=== PATIENT | female | born 1985 | race Caucasian/White ===

== ENCOUNTER → 2019-06-26 08:45 | Outpatient (CLI) | payer OTHER, SELFPAY ==
--- NOTE | 2019-06-26 | DI.MRI.S_ITS ---
PROCEDURE: MR BRAIN (PITUITARY) WWO CON INDICATIONS: Abnormal level of hormones TECHNIQUE: Noncontrast sagittal and axial FLAIR, axial gradient echo, axial diffusion and ADC through the brain. Thin-slice sagittal and coronal T1 spin echo, coronal T2 fast spin echo through the pituitary. After the administration contrast, optional dynamic coronal T1 spin echo, thin-slice coronal and sagittal T1 spin echo images through the pituitary fossa; axial T1 spin echo with fat saturation through the brain. COMPARISON: None. FINDINGS: Image quality: Excellent. Pituitary Gland: Within the central portion of the pituitary gland, there is a lesion seen without significant enhancement that demonstrates fluid/fluid levels on precontrast imaging, including precontrast T1-weighted hyperintensity, as on series 10 image 6. This measures 1.3 cm AP by 1.3 cm transversely, with a craniocaudal extent of 1.2 cm. This lesion does not enhance, although there is a stone seen on the margins of this lesion, which likely represent normal pituitary tissue. Minimal mass effect can be seen upon the optic chiasm. The pituitary stalk and infundibulum have an unremarkable appearance. A normal appearing pituitary bright spot is seen posteriorly on the precontrast sagittal T1-weighted images. CSF Spaces: Ventricles are normal in size and shape. Basal cisterns are patent. No extra-axial fluid collections. Brain: No intracranial bleeds or mass effects. No abnormal intracranial enhancement. Farley-white matter interface is intact. Diffusion weighted images demonstrate no acute ischemic insults. Brainstem is normal. Normal intravascular flow voids are present. Skull and face: Calvarial marrow is normal in signal. Orbits appear normal. Sinuses: Sinuses and mastoids are clear. IMPRESSION: There is a 1.3 cystic lesion with hemorrhage within it. No enhancing masses are seen. Please consider a followup position of vertical MRI in 3-6 months for further evaluation. Minimal mass effect is seen upon the optic chiasm. Dictated by: Hal Ambriz M.D. on 06/26/2019 at 8:49 Approved by: Hal Ambriz M.D. on 06/26/2019 at 8:54
== END ==
PROVIDERS: PCP Family Medicine; Visit Provider Family Medicine
DX: R89.1 Abnormal level of hormones in specimens from other organs, systems and tissues (principal); E23.6 Other disorders of pituitary gland; Q61.00 Congenital renal cyst, unspecified; K86.2 Cyst of pancreas
CPT/HCPCS: 70553

== ENCOUNTER 2020-01-20 19:15 | Emergency (ER) | payer OTHER, SELFPAY ==
[2020-01-20 19:28] VITALS: BP 224/119; PULSE 83; RESP 17; TEMP 37; O2SAT 100
[2020-01-20 19:40] VITALS: BP 150/88
--- NOTE | 2020-01-20 19:46 | PC.NURSE ---
Pt has a hx of migraines and states that this migraine is similar to the others besides the fuzzy vision in her L eye. She also reports a brightness in her L eye. Had a scheduled appt with her neurololgist but d/t vision changes he wished her to come to the ER. She states that the worse of her migraine was on Monday but has since been getting better, today it is a 3/10 pain
[2020-01-20 20:07] LABS: Add Manual Diff / Slide Review NO; Basophils Absolute Auto 0 /uL (0-100); Basophils Percent Auto 0.9 % (0-2); Eosinophils Absolute Auto 100 /uL (0-450); Eosinophils Percent Auto 1.5 % (2-4); Hematocrit 35.9 % (36-46); Hemoglobin 11.9 g/dL (12.0-16.0); Lymphocytes Absolute Auto 2500 /uL (1100-4500); Lymphocytes Percent Auto 47.9 % (25-40); Mean Corpuscular HGB Conc 33.2 % (30-36); Mean Corpuscular Hemoglobin 27.5 PG (26-34); Mean Corpuscular Volume 82.9 fL (80-100); Monocytes Absolute Auto 400 /uL (0-900); Neutrophils Absolute Auto 2200 /uL (1500-7000); Neutrophils Percent Auto 41.7 % (50-75); Platelet Count 463 X10^3/uL (150-400); Red Blood Cell Count 4.34 X10^6/uL (4.0-5.2); Red Cell Distribution Width 14.1 % (11.6-14.8); White Blood Cell Count 5.2 X10^3/uL (4.5-11.0)
[2020-01-20 20:12] LABS: BUN Creatinine Ratio 15.9 (6-22); Blood Urea Nitrogen 11 mg/dL (7-17); Calcium 9.2 mg/dL (8.4-10.2); Carbon Dioxide 27 mmol/L (22-32); Chloride 102 mmol/L (98-107); Estimated Glomerular Filt Rate > 60.0 mL/min (>60); Glucose 99 mg/dL (70-100); HEMOLYSIS 15 (0-50); Potassium 3.8 mmol/L (3.4-5.1); Sodium 136 mmol/L (137-145)
--- NOTE | 2020-01-20 20:26 | ED.HA ---
HPI - Headache <ABDIRASHID Diaz - Last Filed: 01/21/20 02:33> General Chief Complaint: Headache Stated Complaint: LOOSE VISION LEFT EYE MIGRAINE Time Seen by Provider: 01/20/20 19:30 Source: patient Mode of arrival: Ambulatory Limitations: no limitations History of Present Illness HPI Narrative: This is a 34 year female, nonsmoker, who has of polycystic kidney disease, pituitary tumor, migraine headache presents to ED with her significant other with chief complain of decreased left vision since . Patient reports onset of migraine started on Monday. Patient usually has photosensitivity with her migraine headache. Patient noticed blurred vision on which became worse on Monday. She states she is able to see light, collar and shapes but not in details. Patient reports vision is better actually in dark room instead of bright room which distorts the shakes. Patient has no problem with right eye vision. Patient has throbbing pain behind bilateral eyes but denies pain itself within the eye. Patient reports her headache has slightly improved since Monday. She reports current headache is at 3 to 4/10 but her vision is not improving. Patient is currently taking propanolol for maintenance/prophylactic medication for migraine headache. She use to have migraine headache about 2 to 3 times a month but now it has been decreased to once a month. She was evaluated at the primary care clinic at [facility] at and was referred to cylinder handler and neurologist. When she was in contact with neurologist and [facility] she was instructed to going to ED for an evaluation. She reports she has mild nausea. She denies fever, chills, vomiting, unusual rashes, or neck tightness. Patient's last MRI was done in May 2019 which indicates pituitary gland lesion 1.3 cm transversely with craniocaudal extent of 1.2 cm. This lesion does not enhance although there is a stone seen on the margins of this lesion which likely represent normal pituitary tissue. There is minimal mass effect can be seen upon the optic chiasm. He was recommended to follow up in 3-6 months with a vertical MRI for further evaluation. Patient reports neurologist Dr. Duarte at [facility] is monitoring with this condition with Q 6 months MRI test. She also is followed up with cylinder handler at [facility] since her pituitary gland lesion is close to optic chiasm. The patient reports first found out about pituitary lesion 9 years ago. No following imaging test was done until May last year. No neurosurgeon follow-up was required according to tobacco wetter since the size is very small and no other symptoms patient had at that time. Related Data Home Medications Medication Instructions Recorded Confirmed acetaminophen #0 05/23/16 etonogestrel-ethinyl estradiol 1 icr VAGINAL #0 05/23/16 [NuvaRing] multivitamin [Multiple Vitamins] 1 tab PO QDAY #0 tab 05/23/16 ibuprofen 01/20/20 losartan 25 mg PO DAILY 01/20/20 01/20/20 propranolol 20 mg PO BID 01/20/20 01/20/20 Allergies Allergy/AdvReac Type Severity Reaction Status Date / Time meperidine [From DEMEROL] AdvReac Mild N&V-PT Verified 01/20/20 19:34 DENIED HAVING DEMEROL NSAIDS (Non-Steroidal AdvReac Unknown AVOIDS Verified 01/20/20 19:34 Anti-Inflamma BECAUSE OF [NSAIDS (NON-STEROIDAL THE ANTI-INFLAMMA] POLYCYSTIC KIDNEY DISEASE ketorolac [From Toradol] AdvReac anxiety Verified 01/20/20 20:48 lisinopril AdvReac cough Verified 01/20/20 20:48 tramadol AdvReac anxiety Verified 01/20/20 20:48 Review of Systems <ABDIRASHID Diaz - Last Filed: 01/21/20 02:33> Review of Systems Narrative: General: Denies fever, chills, fatigue, malaise, sweats. HEENT: See HPI Respiratory: Denies dyspnea, cough, wheezing, hemoptysis, sputum. Cardiovascular: Denies chest pain, palpitations, orthopnea, edema. Gastrointestinal: Denies nausea, vomiting, abdominal pain, diarrhea, constipation, melena. : Denies dysuria, frequency, incontinence, hematuria, urinary retention. Musculoskeletal: Denies weakness, joint pain or bony pain. Skin: Denies rash, skin lesions, or other. Neurologic: Denies weakness, (+) headache, numbness, change in speech, confusion, seizures, incoordination. Psychiatric: No concerning psychosocial issues. 12-point review of systems is negative except for those stated above. Patient History <ABDIRASHID Diaz - Last Filed: 01/21/20 02:33> Medical History (Updated 01/21/20 @ 02:05 by ABDIRASHID Diaz) Migraine headache (Acute) Pituitary gland disorder (Acute) Polycystic kidney (Acute) Surgical History (Updated 01/20/20 @ 20:47 by ABDIRASHID Diaz) H/O tubal ligation (Acute) Social History Smoking Status: Never smoker Smoking Status: Never smoker alcohol intake frequency: holidays/special occasions only Substance Use Type: does not use Exam <ABDIRASHID Diaz - Last Filed: 01/21/20 02:33> Narrative Exam Narrative: GEN: Alert, oriented x 3, well appearing and nourished, and in no acute distress. Head: Normal cephalic, atraumatic. No scalp or temporal tenderness, palpable mass or rash. EYES: Pupils are equal, round, and reactive to light and accommodation. Extraocular muscles are intact bilaterally. There is no subconjunctival hemorrhage, exudate and sclera non-icteric. Visual Acuity OS 20/70, OD 20/30, OU 20/20. IOP 18 ENT: Bilateral auditory canals and tympanic membranes clear. Hearing grossly intact. Nose without bleeding, purulent discharge, septal hematoma or deviation. Mucous membrane moist, no mucosal lesion. Throat without erythema, tonsillar hypertrophy or exudate. Uvula in midline, airway patent. Neck: Trachea in midline. No JVD, non-tender without lymphadenopathy. No masses or thyroid megaly. Supple, non-tender and no meningeal signs. CARDIAC: Normal regular rate and rhythm without murmurs, gallops, or rubs. No chest wall tenderness. No peripheral edema, cyanosis or pallor. Capillary refill is less than 2 seconds. No carotid bruits. RESPIRATORY: Lungs are cleat to auscultate bilaterally. No cough, wheezes, rales, or rhonchi. No stridor, respiratory distress, increase work of breathing, or accessary muscle used. ABD: Abdomen soft, nontender and non-distended. No guarding or rebound tenderness to palpate. Bowel sounds are normal in all 4 quadrants. There is no palpable masses or organomegaly. EXT: Full painless ROM of all extremities with no loss of sensation, strength, effusion or edema. SKIN: Warm, dry, normal color for patient. No erythema, lesions or rash. BACK: Nontender without deformity or crepitance. No flank tenderness. NEUROLOGICAL: Alert and oriented to place, time and person. No facial droops, dysphasia. CN II-XII intact. Strength and sensation symmetric and intact throughout. Cerebellar testing normal. PSYCHIATRIC: Good judgement and reason, without hallucinations, abnormal affect or abnormal behaviors during the examination. Patient is not suicidal. Initial Vital Signs Initial Vital Signs: Vital Signs Temperature 98.6 F 01/20/20 19:28 Pulse Rate 83 01/20/20 19:28 Respiratory Rate 17 01/20/20 19:28 Blood Pressure 224/119 H 01/20/20 19:28 Pulse Oximetry 100 01/20/20 19:28 Eyes General: appearance normal, both eyes and all related structures Visual Mccormick: normal visual mccormick by confrontation Alignment and Position: alignment normal Periorbital: periorbital findings normal Eyelids: eyelids normal Conjunctivae: conjunctivae normal Sclera: sclerae normal Cornea: corneas normal Pupils: PERRL, normal by confrontation and accommodation normal EOM: EOM intact bilaterally Direct ophthalmoscopy: normal light reflex <Chevy Lee DO - Last Filed: 01/21/20 03:03> Initial Vital Signs Initial Vital Signs: Vital Signs Temperature 98.6 F 01/20/20 19:28 Pulse Rate 83 01/20/20 19:28 Respiratory Rate 17 01/20/20 19:28 Blood Pressure 224/119 H 01/20/20 19:28 Pulse Oximetry 100 01/20/20 19:28 Scores <ABDIRASHID Diaz - Last Filed: 01/21/20 02:33> GCS Diana coma scale eye opening: Spontaneous Diana coma scale verbal response: Orientated Diana coma scale motor response: Obey commands Diana coma scale total score: 15 Course <ABDIRASHID Diaz - Last Filed: 01/21/20 02:33> Orders Ordered: ED Orders 01/20/20 19:36 Basic Metabolic Panel Stat Complete Blood Count AUTO DIFF Stat Partial Thromboplastin Time Stat Prothrombin Time INR Stat 01/20/20 22:26 CT head/brain wo con Stat Discontinued Medications Acetaminophen (Tylenol) 650 mg PO NOW ONE Stop: 01/20/20 20:00 Last Admin: 01/20/20 20:31 Dose: 650 mg Documented by: NEHA Diphenhydramine HCl (Benadryl) 25 mg IV NOW ONE Stop: 01/20/20 20:00 Last Admin: 01/20/20 20:31 Dose: 25 mg Documented by: NEHA Sodium Chloride (Normal Saline 0.9%) 500 mls @ 1,000 mls/hr IV BOLUS ONE Stop: 01/20/20 20:28 Last Infusion: 01/20/20 21:05 Dose: 0 mls/hr Documented by: Admin: 01/20/20 20:32 Dose: 1,000 mls/hr Documented by: NEHA Metoclopramide HCl (Reglan) 10 mg IV NOW ONE Stop: 01/20/20 20:00 Last Admin: 01/20/20 20:32 Dose: 10 mg Documented by: NEHA Proparacaine HCl (Parcaine 0.5% Ophth Sheila) 1 drops EYE-LEFT NOW ONE Stop: 01/20/20 20:08 Last Admin: 01/20/20 20:33 Dose: 1 drops Documented by: NEHA Reevaluation(s) Reevaluation #1: No changes in vision in left eye even with improved headache Time: 21:00 Consultations Consultation #1: Dr. Matthew at [facility] (Gen Surg resident) consulted with test results and physical finding. Waiting for neuro specialist to call back for their recommendation. Informed no MRI is available tonight. Time: 21:32 Consultation #2: Dr. Staton (opthalmologist) kindly called back and recommended no further imaging but to transfer her to [place] for probable MRI testing and to keep patient NPO in case patient requires surgical procedure. Time: 10:00 Consultation #3: Dr. Renteria (neuro-surgeon) at [facility] kindly called back with recommendation with Head CT to rule out hydrocephalus or pituitary bleed. If there's a surgical emergency as those two indicated findings then to transfer the patient to [facility] for surgical treatment. If there's no surgcial emergencies, to consult back with Ophthalmology and or neurologist at [facility] for further recommendation, evaluation, and treatment. Time: 10:20 Additional Consultation(s): At [facility] transfer center consulted with CT result. Increased pituitary lesion in size and waiting for neurosurgeons phone call. It is informed that [facility] does not do surgery involved pituitary gland/tumor. Vital Signs Vital signs: Vital Signs - 8 hr 01/20/20 19:28 01/20/20 19:40 01/20/20 20:58 Temperature 98.6 F Pulse Rate 83 75 Respiratory Rate 17 16 Blood Pressure 224/119 H Blood Pressure [Left Arm] 150/88 H 150/88 H Pulse Oximetry 100 99 01/20/20 22:05 01/21/20 00:10 01/21/20 02:06 Temperature 98.4 F Pulse Rate 71 78 85 Respiratory Rate 18 16 18 Blood Pressure Blood Pressure [Left Arm] 143/76 H 158/89 H 191/105 H Pulse Oximetry 99 100 100 01/21/20 02:35 Temperature Pulse Rate 87 Respiratory Rate 20 Blood Pressure Blood Pressure [Left Arm] 162/89 H Pulse Oximetry 100 <Chevy Lee DO - Last Filed: 01/21/20 03:03> Orders Ordered: ED Orders 01/20/20 19:36 Basic Metabolic Panel Stat Complete Blood Count AUTO DIFF Stat Partial Thromboplastin Time Stat Prothrombin Time INR Stat 01/20/20 22:26 CT head/brain wo con Stat Discontinued Medications Acetaminophen (Tylenol) 650 mg PO NOW ONE Stop: 01/20/20 20:00 Last Admin: 01/20/20 20:31 Dose: 650 mg Documented by: NEHA Diphenhydramine HCl (Benadryl) 25 mg IV NOW ONE Stop: 01/20/20 20:00 Last Admin: 01/20/20 20:31 Dose: 25 mg Documented by: NEHA Sodium Chloride (Normal Saline 0.9%) 500 mls @ 1,000 mls/hr IV BOLUS ONE Stop: 01/20/20 20:28 Last Infusion: 01/20/20 21:05 Dose: 0 mls/hr Documented by: Admin: 01/20/20 20:32 Dose: 1,000 mls/hr Documented by: NEHA Metoclopramide HCl (Reglan) 10 mg IV NOW ONE Stop: 01/20/20 20:00 Last Admin: 01/20/20 20:32 Dose: 10 mg Documented by: NEHA Proparacaine HCl (Parcaine 0.5% Ophth Sheila) 1 drops EYE-LEFT NOW ONE Stop: 01/20/20 20:08 Last Admin: 01/20/20 20:33 Dose: 1 drops Documented by: NEHA Vital Signs Vital signs: Vital Signs - 8 hr 01/20/20 19:28 01/20/20 19:40 01/20/20 20:58 Temperature 98.6 F Pulse Rate 83 75 Respiratory Rate 17 16 Blood Pressure 224/119 H Blood Pressure [Left Arm] 150/88 H 150/88 H Pulse Oximetry 100 99 01/20/20 22:05 01/21/20 00:10 01/21/20 02:06 Temperature 98.4 F Pulse Rate 71 78 85 Respiratory Rate 18 16 18 Blood Pressure Blood Pressure [Left Arm] 143/76 H 158/89 H 191/105 H Pulse Oximetry 99 100 100 01/21/20 02:35 Temperature Pulse Rate 87 Respiratory Rate 20 Blood Pressure Blood Pressure [Left Arm] 162/89 H Pulse Oximetry 100 MDM - Headache <Jay López-ABDIRASHID Hussein - Last Filed: 01/21/20 02:33> Differential Diagnosis Differential diagnosis: Likely migraine and other (enlarged pituitary gland tumor, retinal artery occulusion) Medical Records Attestation: I reviewed the patient's medical records. Lab Data Attestation: I reviewed the patient's lab results. Result diagrams: 01/20/20 19:36 01/20/20 19:36 Labs: Lab Results 01/20/20 01/20/20 01/20/20 Range/Units 19:36 19:36 19:36 WBC 5.2 (4.5-11.0) X10^3/uL RBC 4.34 (4.0-5.2) X10^6/uL Hgb 11.9 L (12.0-16.0) g/dL Hct 35.9 L (36-46) % MCV 82.9 (80-100) fL MCH 27.5 (26-34) PG MCHC 33.2 (30-36) % RDW 14.1 (11.6-14.8) % Plt Count 463 H (150-400) X10^3/uL Neut % (Auto) 41.7 L (50-75) % Lymph % (Auto) 47.9 H (25-40) % Maury % (Auto) 8.0 (3-14) % Eos % (Auto) 1.5 L (2-4) % Baso % (Auto) 0.9 (0-2) % Neut # (Auto) 2200 (4676-3569) /uL Lymph # (Auto) 2500 (8572-9540) /uL Maury # (Auto) 400 (0-900) /uL Eos # (Auto) 100 (0-450) /uL Baso # (Auto) 0 (0-100) /uL PT 11.6 (10.1-12.7) SECONDS INR 1.0 (0.9-1.3) APTT 42 H (26.4-36.2) SECONDS Sodium 136 L (137-145) mmol/L Potassium 3.8 (3.4-5.1) mmol/L Chloride 102 (98-107) mmol/L Carbon Dioxide 27 (22-32) mmol/L BUN 11 (7-17) mg/dL Creatinine 0.69 (0.52-1.04) mg/dL Estimated GFR > 60.0 (>60) mL/min BUN/Creatinine Ratio 15.9 (6-22) Glucose 99 (70-100) mg/dL Calcium 9.2 (8.4-10.2) mg/dL [facility] Narrative Medical decision making narrative: No obvious neurological deficit per physical exam. Eye exam was unremarkable except patient has decreased vision on left eye as 20/70 verses 20/30 on right eye. OU was 20/20. IOP was 18. Normal eyelids, alignement, EOM, PERR. Normal conjunctiva, sclear findings. Patient's headache was managed with IV fluid, IV Benadryl and Reglan, Tyelenol which patient found to be helpful. When patient was re-evaluated reports no changes in vision. Consulted [place] cylinder handler Dr. Leone and neurosurgeon Dr. Renteria at [facility] and Dr. Lee. As Dr. Renteria's recommendation, head CT was obtained and waiting for the result. Head CT preliminary report faxed to ED: Interval in size of pituitary lesion now measuring up to 1.5 x 1.2 x 1.1 cm (from 1.2x 1.3x 1.3 cm) . This was better seen on prior MRI imaging. This lesion situated abuts the optic chiasm read by Dr. Lopez Ogden and received a phone call as well. There is no Hydrocephalus or intracranial hemorrhage appreciated. Waiting for [place] neurosurgeon's phone call with the above CT results and possible surgical consult. Informed the patient and spouse with CT findings and current status of waiting for consult phone calls. 0150-Consulted neurosurgeon at , Dr. Almonte, over the phone with physical findings test results. Dr. Almonte kindly accepted the patient's care for further evaluation and possible surgical procedure. Patient has been remaining NPO since 1930 last night except a few sips of water to take medicatioin. Patient reports her headache is mostly gone at this time with remaining decreased vision in left eye. Patient denies nausea at this time. Patient ambulated to the bathroom and back to bed in stable gait. Informed patient and significant other on pending transfer to and they both verbalized understanding and agreement with the treatment plan. <Chevy Lee DO - Last Filed: 01/21/20 03:03> Lab Data Labs: Lab Results 01/20/20 01/20/20 01/20/20 Range/Units 19:36 19:36 19:36 WBC 5.2 (4.5-11.0) X10^3/uL RBC 4.34 (4.0-5.2) X10^6/uL Hgb 11.9 L (12.0-16.0) g/dL Hct 35.9 L (36-46) % MCV 82.9 (80-100) fL MCH 27.5 (26-34) PG MCHC 33.2 (30-36) % RDW 14.1 (11.6-14.8) % Plt Count 463 H (150-400) X10^3/uL Neut % (Auto) 41.7 L (50-75) % Lymph % (Auto) 47.9 H (25-40) % Maury % (Auto) 8.0 (3-14) % Eos % (Auto) 1.5 L (2-4) % Baso % (Auto) 0.9 (0-2) % Neut # (Auto) 2200 (3852-0747) /uL Lymph # (Auto) 2500 (6482-0895) /uL Maury # (Auto) 400 (0-900) /uL Eos # (Auto) 100 (0-450) /uL Baso # (Auto) 0 (0-100) /uL PT 11.6 (10.1-12.7) SECONDS INR 1.0 (0.9-1.3) APTT 42 H (26.4-36.2) SECONDS Sodium 136 L (137-145) mmol/L Potassium 3.8 (3.4-5.1) mmol/L Chloride 102 (98-107) mmol/L Carbon Dioxide 27 (22-32) mmol/L BUN 11 (7-17) mg/dL Creatinine 0.69 (0.52-1.04) mg/dL Estimated GFR > 60.0 (>60) mL/min BUN/Creatinine Ratio 15.9 (6-22) Glucose 99 (70-100) mg/dL Calcium 9.2 (8.4-10.2) mg/dL Discharge Plan Departure Patient Disposition: [facility] Clinical Impression: Lesion of pituitary gland, Blurred vision, left eye Headache Qualifiers: Headache type: unspecified Headache chronicity pattern: unspecified pattern Intractability: not intractable Qualified Code(s): R51 - Headache Discharge Date/Time: 01/21/20 02:37 Prescriptions: No Action etonogestrel-ethinyl estradiol [NuvaRing] 1 EACH ring 1 icr Vaginal Qty: 0 RF: 0 multivitamin [Multiple Vitamins] 1 EACH tablet 1 tab PO QDAY Qty: 0 RF: 0 acetaminophen 325 mg tablet Qty: 0 RF: 0 losartan 25 mg tablet 25 mg PO DAILY RF: 0 ibuprofen 600 mg tablet RF: 0 propranolol 20 mg tablet 20 mg PO BID RF: 0 Referrals: Cristine Castanon DO [Primary Care Provider] - <Chevy Lee DO - Last Filed: 01/21/20 03:03> Cosign ED Attending Cosignature Attestation: Dr Lee Co-Sign Statement: I was available for consultation during this patient's emergency department visit. This chart is signed by myself for administrative purposes only. I did not have direct contact with this patient during this visit. They were seen independently by the APC.
[2020-01-20] MEDS: diphenhydrAMINE 50 MG/ML VIAL 25 MG IV (20:31)
[2020-01-20] MEDS: ACETAMINOPHEN 325 MG TABLET 650 MG PO (20:31)
[2020-01-20] MEDS: SODIUM CHLORIDE 0.9% 500 ML 1000 ML IV (20:32)
[2020-01-20] MEDS: METOCLOPRAMIDE 10 MG/2 ML INJ IV (20:32)
[2020-01-20] MEDS: PROPARACAINE 0.5% OPHTH SOL 1 DROPS EYE-LEFT (20:33)
[2020-01-20 20:58] VITALS: BP 150/88; PULSE 75; RESP 16; O2SAT 99
[2020-01-20 21:02] LABS: Prothrombin Time 11.6 SECONDS (10.1-12.7)
[2020-01-20 21:05] LABS: PTT Partial Thromboplastin Tim 42 SECONDS (26.4-36.2)
[2020-01-20 22:05] VITALS: BP 143/76; PULSE 71; RESP 18; O2SAT 99
--- NOTE | 2020-01-20 22:26 | DI.CT.S_ITS ---
PROCEDURE: CT HEAD/BRAIN WO CON INDICATIONS: headache, decreaed L vision, history of pituitay lesion. TECHNIQUE: Noncontrast 4.5 mm thick angled axial sections acquired from the foramen magnum to the vertex, with coronal and sagittal reformats. For radiation dose reduction, the following was used: automated exposure control, adjustment of mA and/or kV according to patient size. COMPARISON: [facility], MR, MR BRAIN (PITUITARY) WWO CON, 06/26/2019, 8:56. FINDINGS: Image quality: Excellent. CSF spaces: Basal cisterns are patent. No extra-axial fluid collections. Ventricles are normal in size and shape. Brain: There is a hyperdense lesion in the suprasellar area measuring 6 x 12 x 10 mm, corresponding to the MRI finding of a cystic mass with hemorrhage on 06/26/2019. No midline shift. No intracranial masses or hemorrhage. Farley-white matter interface is normal. Skull and face: Calvarium and visualized facial bones are intact, without suspicious lesions. Sinuses: Visualized sinuses and mastoids are clear. IMPRESSION: 1. No acute intracranial abnormalities. 2. A suprasellar mass measuring 6 x 12 x 10 mm, which may have minimally increased in size. Followup MR is suggested. No significant discrepancy with the third shift lieutenant radiology preliminary report. Dictated by: Juan Francisco Dean M.D. on 01/21/2020 at 7:28 Approved by: Juan Francisco Dean M.D. on 01/21/2020 at 7:32
[2020-01-21 00:10] VITALS: BP 158/89; PULSE 78; RESP 16; TEMP 36.9; O2SAT 100
--- NOTE | 2020-01-21 02:05 | PC.NURSE ---
Decision has been made to airlift pt to [facility]
[2020-01-21 02:06] VITALS: BP 191/105; PULSE 85; RESP 18; O2SAT 100
[2020-01-21 02:35] VITALS: BP 162/89; PULSE 87; RESP 20; O2SAT 100
== END 2020-01-21 02:37 | disposition short-term general hospital (02) ==
PROVIDERS: Emergency Provider Nurse Practitioner Family; PCP Family Medicine
DX: H53.8 Other visual disturbances (principal); R51 Headache; E23.7 Disorder of pituitary gland, unspecified
CPT/HCPCS: 36415; 70450; 80048; 85025; 85610; 85730; 96361; 96374; 96375; 99284; 99285; J1200; J2765